=== PATIENT | male | born 1955 ===

== ENCOUNTER 2025-06-25 10:49 | Outpatient (CLI) | payer MEDICARE | END 2025-06-25 10:50 | disposition home or self-care (01) | LOC: ULT 10:49 | PROVIDERS: ATTEND Nurse Practitioner Family | DX: M79.605 Pain in left leg (principal) ==

== ENCOUNTER 2025-07-23 09:37 | Outpatient (CLI) | payer MEDICARE ==
[2025-07-23 10:18] LABS: #Basophils 0.09 10x3/uL (0.0-0.2); #Eosinophils 0.30 10x3/uL (0.0-0.7); #Monocytes 0.68 10x3/uL (0.11-0.59); #Neutrophils 7.48 10x3/uL (1.40-6.50); %Basophils 0.9 % (0.0-1.0); %Eosinophils 3.0 % (0.0-10.0); %Lymphocytes 13.6 % (21.0-51.0); %Monocytes 6.8 % (0.0-10.0); %Neutrophils 75.1 % (42.0-75.0); Hematocrit 42.1 % (42.0-52.0); Hemoglobin 13.6 g/dL (14.0-18.0); Mean Corpuscular Hemoglobin 25.9 pg (27.0-31.0); Mean Corpuscular Volume 80.2 fL (78.0-98.0); Platelet Count 271 10x3/uL (130-400); Red Blood Cell (RBC) Count 5.25 mill/uL (4.70-6.10); White Blood Cell (WBC) Count 9.97 10x3/uL (4.8-10.8)
[2025-07-23 10:41] LABS: Anion Gap 15 mmol/L (10-20); BUN (Urea Nitrogen) 22 mg/dL (8.4-25.7); Calc. Creatinine Clearance 0 mL/min (70-130); Calcium 9.0 mg/dL (7.8-10.44); Carbon Dioxide 17 mmol/L (23-31); Chloride 115 mmol/L (98-107); Glucose 106 mg/dL (80-115); Potassium 3.9 mmol/L (3.5-5.1); Sodium 143 mmol/L (136-145)
== END 2025-07-23 09:38 | disposition home or self-care (01) ==
LOC: LABBT 09:37
PROVIDERS: ATTEND Orthopaedic Surgery
DX: Z01.818 Encounter for other preprocedural examination (principal); M18.12 Unilateral primary osteoarthritis of first carpometacarpal joint, left hand; M65.332 Trigger finger, left middle finger
CPT/HCPCS: 71046; 80048; 85025

== ENCOUNTER 2025-07-29 06:17 | Day surgery (SDC) | payer MEDICARE ==
[2025-07-23 09:42] VITALS: BMI 29.2
[2025-07-29] MEDS ORDERED: Lidocaine 1% PF 5 ML VIAL ONE (08:06)
[2025-07-29] MEDS ORDERED: fentaNYL PF 100 MCG/2 ML SYRINGE ONE (08:06)
[2025-07-29] MEDS ORDERED: Ondansetron PF 4 MG/2 ML Vial ONE (08:06)
[2025-07-29] MEDS ORDERED: PROPOFOL 200 MG/20 ML VIAL ONE (09:05)
== END 2025-07-29 12:10 | disposition home or self-care (01) ==
LOC: SDC 06:17
PROVIDERS: ATTEND Orthopaedic Surgery
PROC: 0LN80ZZ Release Left Hand Tendon, Open Approach (ICD-10-PCS; principal; 2025-07-29)
PROC: 0R9T3ZZ Drainage of Left Carpometacarpal Joint, Percutaneous Approach (ICD-10-PCS; 2025-07-29)
DX: M65.332 Trigger finger, left middle finger (principal); M18.12 Unilateral primary osteoarthritis of first carpometacarpal joint, left hand; E78.5 Hyperlipidemia, unspecified; I12.9 Hypertensive chronic kidney disease with stage 1 through stage 4 chronic kidney disease, or unspecified chronic kidney disease; N18.9 Chronic kidney disease, unspecified; Z79.899 Other long term (current) drug therapy; Z88.0 Allergy status to penicillin
CPT/HCPCS: 20600; 26055; A6223; J1010; J1100; J2405; J2704; J3490